=== PATIENT | male | born 1955 | race Caucasian/White ===

== ENCOUNTER 2018-09-12 12:21 | Emergency (ER) | payer OTHER ==
[2018-09-12 13:14] VITALS: BP 110/81; PULSE 101; RESP 18; TEMP 98.6
--- NOTE | 2018-09-12 13:39 | XR ---
EXAMINATION TYPE: XR Hip Complete RT DATE OF EXAM: 09/12/2018 COMPARISON: NONE HISTORY: Pain TECHNIQUE: 2 views submitted FINDINGS: There is no evidence of erosive change or acute fracture. No erosive change. There is mild concentric narrowing the joint space and mild hypertrophic change of the acetabulum. IMPRESSION: 1. Mild arthropathy correlate for femoral acetabular impingement.
[2018-09-12] MEDS ORDERED: methylPREDNISolone SOD SUCCI 125 MG/2 ML VIAL IM ONE (14:14)
[2018-09-12] MEDS ORDERED: KETOROLAC 60 MG/2 ML VIAL IM STA (14:14)
--- NOTE | 2018-09-12 14:15 | ED ---
Lower Extremity Injury HPI - General Chief Complaint: Extremity Injury, Lower Stated Complaint: hip pain Time Seen by Provider: 09/12/18 14:02 Source: patient Mode of arrival: ambulatory Limitations: no limitations - History of Present Illness Initial Comments: 63yo male residing for right hip pain. Patient states he has been supposed on a couch for the past 2 nights he states the pain began after sleeping on the couch. Patient states he is able to walk weight-bear and ambulate CT is able to flex and extend passively at the hip. He denies any fever or chills night sweats denies any upper respiratory symptoms. Patient denies any redness recent falls or trauma. Patient denies any back pain. Patient denies loss of bowel bladder control loss of sensation or muscle weakness of the lower extremity. Remaining review of systems negative upon arrival patient appears normal signs acute distress. - Related Data Previous Rx's Medication Instructions Recorded Ibuprofen 600 mg PO Q8H 7 Days #21 tablet 09/12/18 Allergies Allergy/AdvReac Type Severity Reaction Status Date / Time No Known Allergies Allergy Verified 09/12/18 13:15 Review of Systems ROS Statement: Those systems with pertinent positive or pertinent negative responses have been documented in the HPI. ROS Other: All systems not noted in ROS Statement are negative. Past Medical History Past Medical History: Diabetes Mellitus, Hyperlipidemia Past Surgical History: Bowel Resection, Hernia Repair General Exam - General Exam Comments Initial Comments: General: The patient is awake and alert, in no distress, and does not appear acutely ill. Eye: +3 mm pupils are equal, round and reactive to light, extra-ocular movements are intact. No nystagmus. There is normal conjunctiva bilaterally. No signs of icterus. Cardiovascular: There is a regular rate and rhythm. No murmur, rub or gallop is appreciated. Respiratory: Lungs are clear to auscultation, respirations are non-labored, breath sounds are equal. No wheezes, stridor, rales, or rhonchi. Gastrointestinal: Soft, non-distended, non-tender abdomen without masses or organomegaly noted. There is no rebound or guarding present. No CVA tenderness. Bowel sounds are unremarkable. Musculoskeletal: Normal inspection of the hips b/l. No redness. She is able to both actively flex and extend at the hip without difficulty. Patient is able to weight-bear and walk. Patient has full range motion with no tenderness at the knee and ankle equal and comparison with the unaffected extremity. Sensation intact both proximal distal to injury site. DP pulses equal bilaterally 2+. Neurological: A&O x 3. CN II-XII intact, There are no obvious motor or sensory deficits. Coordination appears grossly intact. Speech is normal. Skin: Skin is warm and dry and no rashes or lesions are noted. Psychiatric: Cooperative, appropriate mood & affect, normal judgment. Limitations: no limitations Course Vital Signs 09/12/18 13:11 Temperature 98.6 F Pulse Rate 101 H Respiratory 18 Rate Blood Pressure 110/81 O2 Sat by Pulse 100 Oximetry Medical Decision Making - Medical Decision Making 63-year-old male presenting for right hip pain. Pain began after sleeping on his right side on a couch. X-ray reveals a impingement syndrome. Patient is neurovascular intact. No redness no history of fevers. Patient is able to range both passively and actively at the right hip. Patient has no redness/skin changes of hte hip. NO history of fall. At this time. Patient is stable for discharge with outpatient orthopedic surgery follow-up. Patient was given a Solu-Medrol injection as well as Toradol emergency department. Patient be discharged with a prescription for ibuprofen. Patient is given a care plan as importance of follow up with primary care provider or orthopedic surgery. Return parameters were discussed patient was discharged. While ambulatory. I did discuss the case by attending provider Dr. Roth prior to patient's discharge Disposition Clinical Impression: Femoral acetabular impingement, Right hip pain Disposition: HOME SELF-CARE Condition: Good Instructions (If sedation given, give patient instructions): Hip Pain (ED) Additional Instructions: Please use medication as discussed. Please follow-up with family doctor in the next 2 days, and orthopedic surgery within the next 2-3 days. Please return to emergency room if the symptoms increase or worsen or for any other concerns. Prescriptions: Ibuprofen 600 mg PO Q8H 7 Days #21 tablet Is patient prescribed a controlled substance at d/c from ED?: No Referrals: [facility],Clinic [Primary Care Provider] - 1-2 days Robert Weathers MD [Medical Doctor] - 1-2 days Time of Disposition: 14:13
== END 2018-09-12 14:35 | disposition home or self-care (01) ==
LOC: EC 12:21
DX: M25.551 Pain in right hip (principal); M25.851 Other specified joint disorders, right hip
CPT/HCPCS: 73502; 99283; 96372 ×2; J2930; J1885